=== PATIENT | male | born 1960 | race Caucasian/White ===

== ENCOUNTER 2023-03-17 00:41 | Emergency (ER) | payer OTHER, MEDICARE ==
[2023-03-17] MEDS ORDERED: Tranexamic Acid 1,000 MG/10 ML VIAL ONE (01:15)
[2023-03-17] MEDS ORDERED: Silver Nitrate Application 1 EACH ONE (01:57)
== END 2023-03-17 02:11 | disposition home or self-care (01) ==
LOC: MADERS 00:41
DX: R04.0 Epistaxis (principal); E78.00 Pure hypercholesterolemia, unspecified
CPT/HCPCS: 30903